=== PATIENT | male | born 1985 | race Caucasian/White ===

== ENCOUNTER → 2022-02-17 | Outpatient (CLI) | payer OTHER | LOC: MHCPAIN 08:21 | DX: M47.897 Other spondylosis, lumbosacral region (principal); M54.16 Radiculopathy, lumbar region; M53.3 Sacrococcygeal disorders, not elsewhere classified | CPT/HCPCS: G0463 ==

== ENCOUNTER → 2022-05-27 | Outpatient (CLI) | payer OTHER | LOC: MHCPAIN 09:17 | DX: M47.896 Other spondylosis, lumbar region (principal); M54.16 Radiculopathy, lumbar region | CPT/HCPCS: G0463 ==